=== PATIENT | male | born 1995 | race African-American/Black ===

== ENCOUNTER 2017-03-19 19:03 | Emergency (ER) | payer OTHER ==
[~2017-03-19] VITALS: Ht 165.1 cm; Wt 65.9 kg
[2017-03-19 19:08] VITALS: Ht 165.1 cm; Wt 65.9 kg
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
== END 2017-03-19 19:19 ==
LOC: E/R 19:03
DX: Z76.89 Persons encountering health services in other specified circumstances (principal)
CPT/HCPCS: 99282